=== PATIENT | male | born 1985 | race Caucasian/White ===

== ENCOUNTER 2016-05-13 08:18 | Emergency (ER) | payer OTHER | END 2016-05-13 08:45 | disposition home or self-care (01) | LOC: ER1 08:18 | DX: L03.311 Cellulitis of abdominal wall (principal); F17.210 Nicotine dependence, cigarettes, uncomplicated | CPT/HCPCS: 99282 ==

== ENCOUNTER 2016-07-28 13:36 | Emergency (ER) | payer OTHER | END 2016-07-28 14:15 | disposition home or self-care (01) | LOC: ER1 13:36 | DX: L03.113 Cellulitis of right upper limb (principal); F17.210 Nicotine dependence, cigarettes, uncomplicated | CPT/HCPCS: 99283 ==